=== PATIENT | male | born 1980 | race Caucasian/White ===

== ENCOUNTER → 2024-03-16 07:50 | Outpatient (REF) | payer BC, OTHER, SELFPAY | LOC: HWRAD 07:50 | PROVIDERS: ATTENDING PHYSICIAN Physician Assistant | DX: M25.561 Pain in right knee (principal) | CPT/HCPCS: 76882 ==

== ENCOUNTER → 2025-04-14 13:46 | Outpatient (REF) | payer BC, SELFPAY | LOC: RAD 13:46 | PROVIDERS: ATTENDING PHYSICIAN Physician Assistant Medical | DX: S05.92XA Unspecified injury of left eye and orbit, initial encounter (principal) | CPT/HCPCS: 70200 ==